=== PATIENT | female | born 1965 | race Caucasian/White ===

== ENCOUNTER 2017-11-30 20:55 | Emergency (ER) | payer MEDICAID ==
[~2017-11-30] VITALS: Ht 160 cm; Wt 68.3 kg
[2017-11-30 22:41] LABS: BASOPHILS # (AUTO) 0.03 x10^3/uL (0-0.1); BASOPHILS % (AUTO) 0 % (0-1); EOSINOPHILS # (AUTO) 0.51 x10^3/uL (0-0.4); EOSINOPHILS % (AUTO) 7 % (1-7); LYMPHOCYTES # (AUTO) 2.49 x10^3/uL (1-3.4); LYMPHOCYTES % (AUTO) 32 % (22-44); MD NO; MEAN CORPUSCULAR HEMOGLOBIN 29.1 pg (27.0-34.8); MEAN CORPUSCULAR HGB CONC 33.4 g/dL (32.4-35.8); MEAN CORPUSCULAR VOLUME 87.2 fL (80-100); MONOCYTES # (AUTO) 0.74 x10^3/uL (0.2-0.8); MONOCYTES % (AUTO) 9 % (2-9); NEUTROPHILS # (AUTO) 4.03 x10^3/uL (1.8-6.8); NEUTROPHILS % (AUTO) 52 % (42-75); PLATELET COUNT 294 x10^3/uL (130-400); RED CELL DISTRIBUTION WIDTH 14.3 % (9.6-15.2)
[2017-11-30 22:45] LABS: CULTURE INDICATED? YES; MICROSCOPIC INDICATED
[2017-11-30 22:48] LABS: ALANINE AMINOTRANSFERASE 20 U/L (12-78); ALBUMIN 3.5 g/dL (3.4-5.0); ANION GAP 4 mmol/L (5-15); CALCIUM 8.4 mg/dL (8.5-10.1); CHLORIDE 109 mmol/L (98-107); CREATININE 0.72 mg/dL (0.55-1.02)
[2017-11-30 22:53] LABS: ALKALINE PHOSPHATASE 69 U/L (45-117); BILIRUBIN,TOTAL 0.4 mg/dL (0.2-1.0); TOTAL PROTEIN 7.2 g/dL (6.4-8.2)
[2017-11-30] MEDS ORDERED: IBUPROFEN 800 MG TABLET PO STA (23:53)
[2017-12-01] MEDS ORDERED: NITROFURANTOIN (MACROBID) 100 MG CAPSULE PO ONE
[2017-12-01] MEDS ORDERED: DIAZEPAM 5 MG TABLET PO ONE
[2017-12-01] MEDS ORDERED: IBUPROFEN 800 MG TABLET ONE (00:02)
[2017-12-01] MEDS ORDERED: DIAZEPAM 5 MG TABLET ONE (00:03)
[2017-12-01] MEDS ORDERED: NITROFURANTOIN (MACROBID) 100 MG CAPSULE ONE (00:03)
[2017-12-01 00:18] VITALS: BP 140/85
== END 2017-12-01 00:20 | disposition home or self-care (01) ==
LOC: ED 23:19
DX: N30.00 Acute cystitis without hematuria (principal); K59.00 Constipation, unspecified
CPT/HCPCS: 36415; 74021; 76700; 80053; 81001; 83690; 84703; 85025; 87077; 87086; 87186; 99285

== ENCOUNTER 2017-12-02 10:57 | Emergency (ER) | payer MEDICAID ==
[~2017-12-02] VITALS: Ht 160 cm; Wt 66.3 kg
[2017-12-02 11:06] VITALS: BP 128/86
== END 2017-12-02 13:52 | disposition home or self-care (01) ==
LOC: ED 12:00
DX: S93.492A Sprain of other ligament of left ankle, initial encounter (principal); F17.200 Nicotine dependence, unspecified, uncomplicated; X50.1XXA Overexertion from prolonged static or awkward postures, initial encounter; Y93.01 Activity, walking, marching and hiking; Y92.009 Unspecified place in unspecified non-institutional (private) residence as the place of occurrence of the external cause; Y99.8 Other external cause status
CPT/HCPCS: 99284

== ENCOUNTER 2018-07-29 04:20 | Emergency (ER) | payer MEDICAID ==
[~2018-07-29] VITALS: Ht 160 cm; Wt 71.6 kg
[~2018-07-29 04:20] MED LIST: ASPI500T10 PO; GABA300C10 PO; IBUP-1223 PO; SUMA100T3 PO; TOPI100T24 PO
--- NOTE | 2018-07-29 04:45 | NUR ---
PT STATES SHE HAS A UTI. PT C/O PELVIC PRESSURE, FOUL SMELLING URINE. pt up to rr with steady gait, provided pt with urine cup
[2018-07-29 05:27] LABS: HCG UR SG 1.036 (1.003-1.030); MICROSCOPIC NOT IND
[2018-07-29 05:28] LABS: CULTURE INDICATED? NO
[2018-07-29 05:43] LABS: BASOPHILS # (AUTO) 0.03 x10^3/uL (0-0.1); BASOPHILS % (AUTO) 0 % (0-1); EOSINOPHILS # (AUTO) 0.94 x10^3/uL (0-0.4); EOSINOPHILS % (AUTO) 13 % (1-7); LYMPHOCYTES # (AUTO) 2.74 x10^3/uL (1-3.4); LYMPHOCYTES % (AUTO) 37 % (22-44); MD NO; MEAN CORPUSCULAR HGB CONC 32.5 g/dL (32.4-35.8); MEAN CORPUSCULAR VOLUME 86.2 fL (80-100); MEAN PLATELET VOLUME 9.4 fL (7.4-10.4); MONOCYTES # (AUTO) 0.75 x10^3/uL (0.2-0.8); MONOCYTES % (AUTO) 10 % (2-9); NEUTROPHILS # (AUTO) 2.91 x10^3/uL (1.8-6.8); NEUTROPHILS % (AUTO) 40 % (42-75); PLATELET COUNT 258 x10^3/uL (130-400); RED BLOOD COUNT 4.44 x10^6/uL (3.82-5.3); RED CELL DISTRIBUTION WIDTH 13.9 % (9.6-15.2)
[2018-07-29 05:54] LABS: ALBUMIN 3.5 g/dL (3.4-5.0); ANION GAP 5 mmol/L (5-15); CALCIUM 8.3 mg/dL (8.5-10.1); CHLORIDE 110 mmol/L (98-107); CREATININE 0.72 mg/dL (0.55-1.02)
[2018-07-29 06:03] VITALS: BP_DIAS 90
[2018-07-29] MEDS ORDERED: CALCIUM CARBONATE 500 MG TAB.CHEW ONE (06:18)
--- NOTE | 2018-07-29 06:20 | NUR ---
PT MEDICATED PER MAR
[2018-07-29] MEDS ORDERED: CALCIUM CARBONATE 500 MG TAB.CHEW PO ONE (06:30)
--- NOTE | 2018-07-29 07:00 | NUR ---
report given to carrillo ha
[2018-07-29 07:28] VITALS: BP_SYST 137
--- NOTE | 2018-07-29 07:29 | NUR ---
Patient/Caregiver given discharge instructions and they have confirmed that they understand the instructions. Patient ambulatory with steady gait.
== END 2018-07-29 07:30 | disposition home or self-care (01) ==
LOC: ED 05:09
DX: N30.00 Acute cystitis without hematuria (principal)
CPT/HCPCS: 36415; 80048; 81003; 81025; 82040; 85025; 99283